=== PATIENT | female | born 1950 | race Caucasian/White ===

== ENCOUNTER → 2020-06-01 | Outpatient (CLI) | payer MEDICARE, OTHER ==
[~2020-06-01] MED LIST: ALL DAY ALLERGY10 M2 PO; ARNUITY ELLIPT50 MCG INH; BONIVA150 MG PO; BREO ELLIPTA 11 EACH INH; CALCIUM + D SO1 EACH PO; LACTULOSE20 GM/30 M PO; MIRTAZAPINE45 MG PO; NEURONTIN 100100 MG PO; NORVASC5 MG PO; OMNICEF 300 MG300 MG PO; PREDNISONE 50 M50 MG PO; PROAIR HFA8.5 GM INH; PROTONIX20 MG PO; PROTONIX40 MG PO; REQUIP3 MG PO; ZITHROMAX250 MG PO
== END ==
LOC: HEART 5 10:45
DX: J44.9 Chronic obstructive pulmonary disease, unspecified (principal); R94.2 Abnormal results of pulmonary function studies
CPT/HCPCS: 94010

== ENCOUNTER → 2020-07-24 | Outpatient (CLI) | payer MEDICARE, OTHER | LOC: KOH-I 11:42 | DX: B34.9 Viral infection, unspecified (principal); J98.4 Other disorders of lung | CPT/HCPCS: 71046 ==

== ENCOUNTER → 2020-08-28 | Outpatient (CLI) | payer MEDICARE, OTHER | LOC: EXRD 11:14 | DX: M19.042 Primary osteoarthritis, left hand (principal); M19.041 Primary osteoarthritis, right hand | CPT/HCPCS: 73130 ==

== ENCOUNTER → 2020-09-21 | Outpatient (CLI) | payer MEDICARE, OTHER | LOC: ECHO 09:50 | DX: R01.1 Cardiac murmur, unspecified (principal); I51.7 Cardiomegaly | CPT/HCPCS: ECHO; 93306 ==

== ENCOUNTER → 2021-04-13 | Outpatient (CLI) | payer MEDICARE, OTHER | LOC: EXRD 03-09 13:00 | DX: S72.91XA Unspecified fracture of right femur, initial encounter for closed fracture (principal); M85.89 Other specified disorders of bone density and structure, multiple sites | CPT/HCPCS: 77080 ==

== ENCOUNTER → 2021-08-23 | Outpatient (CLI) | payer MEDICARE, OTHER | LOC: KOH-I 12:23 | DX: M79.662 Pain in left lower leg (principal); M25.571 Pain in right ankle and joints of right foot; M79.671 Pain in right foot; M19.071 Primary osteoarthritis, right ankle and foot | CPT/HCPCS: 73610; 73630; 93970 ==

== ENCOUNTER → 2021-10-11 | Outpatient (CLI) | payer MEDICARE, OTHER | LOC: KOH-I 11:38 | DX: R05.9 Cough, unspecified (principal) | CPT/HCPCS: 71046 ==

== ENCOUNTER → 2021-11-09 | Outpatient (CLI) | payer MEDICARE, OTHER | LOC: KOH-I 12:18 | DX: M79.672 Pain in left foot (principal); M19.072 Primary osteoarthritis, left ankle and foot | CPT/HCPCS: 73630 ==

== ENCOUNTER → 2021-11-24 | Outpatient (CLI) | payer MEDICARE, OTHER | LOC: HEART 5 07:48 | DX: R09.89 Other specified symptoms and signs involving the circulatory and respiratory systems (principal) ==

== ENCOUNTER → 2021-12-13 | Outpatient (CLI) | payer MEDICARE, OTHER | LOC: KOH-I 13:56 | DX: M79.672 Pain in left foot (principal); S92.322A Displaced fracture of second metatarsal bone, left foot, initial encounter for closed fracture | CPT/HCPCS: 73630 ==

== ENCOUNTER → 2022-01-13 | Outpatient (CLI) | payer MEDICARE, OTHER | LOC: KOH-I 09:04 | DX: M84.375D Stress fracture, left foot, subsequent encounter for fracture with routine healing (principal) | CPT/HCPCS: 73630 ==

== ENCOUNTER → 2022-01-25 | Outpatient (CLI) | payer MEDICARE, OTHER | LOC: KOH-I 13:16 | DX: M79.672 Pain in left foot (principal); G89.29 Other chronic pain; M72.2 Plantar fascial fibromatosis; M84.375A Stress fracture, left foot, initial encounter for fracture | CPT/HCPCS: 73718 ==